=== PATIENT | female | born 2005 | race Caucasian/White ===

== ENCOUNTER 2025-01-05 13:57 | Outpatient (CLI) | payer OTHER | END 2025-01-05 13:58 | disposition home or self-care (01) | LOC: NAV RAD 13:57 | PROVIDERS: ATTEND Family Medicine | DX: Q05.2 Lumbar spina bifida with hydrocephalus (principal); M21.852 Other specified acquired deformities of left thigh; M25.852 Other specified joint disorders, left hip | CPT/HCPCS: 72100; 72170 ==